=== PATIENT | male | born 1945 | race Hispanic/Latino ===

== ENCOUNTER 2023-07-02 18:04 | Observation (INO) | payer OTHER ==
[~2023-07-02] VITALS: Ht 160 cm; Wt 88.5 kg
[~2023-07-02 18:04] MED LIST: DILT240C96 PO; FINA5TAB41 PO; HYDR25TA PO; LOSA100T59 PO; METF-910 PO; TAMS0.4C32 PO; TYL2 PO
[2023-07-02] MEDS ORDERED: PEG 3350/NA SULF,BICARB,CL/KCL 4000 ML SOLN PO ONE (19:30)
[2023-07-02 20:21] LABS: BASOPHILS # (AUTO) 0.03 K/uL (0.00-0.20); BASOPHILS % (AUTO) 0.4 % (0.0-5.0); EOSINOPHILS # (AUTO) 0.08 K/uL (0.00-0.70); HEMATOCRIT 38.7 % (42-54); IMMATURE GRANULOCYTE ABSOLUTE 0.04 K/uL (0-1); LYMPHOCYTES # (AUTO) 1.2 K/uL (1.0-4.8); LYMPHOCYTES % (AUTO) 14.8 % (21.0-51.0); MEAN CORPUSCULAR HEMOGLOBIN 30.7 pg (27.0-33.0); MEAN CORPUSCULAR HGB CONC 33.9 g/dL (32.0-36.0); MEAN CORPUSCULAR VOLUME 90.6 fL (79-99); MONOCYTES # (AUTO) 0.7 K/uL (0.1-1.0); NEUTROPHILS # (AUTO) 5.9 K/uL (1.8-7.7); NEUTROPHILS % (AUTO) 74.3 % (40.0-77.0); PLATELET COUNT (AUTO) 96 K/uL (130-400); RED BLOOD CELL COUNT(AUTO) 4.27 MIL/uL (4.50-6.20); RED CELL DISTRIBUTION WIDTH 14.1 % (11.0-15.5)
[2023-07-02 20:27] LABS: CREATININE 1.4 mg/dL (0.5-1.5); POTASSIUM 3.9 mmol/L (3.5-5.1)
[2023-07-02 20:31] LABS: ALBUMIN 3.6 g/dL (3.5-5.0); BILIRUBIN,TOTAL 0.5 mg/dL (0.2-1.0); TOTAL PROTEIN, SERUM 7.2 g/dL (6.0-8.3)
[2023-07-02] MEDS ORDERED: IOHEXOL 350 MG/ML 100ML INFUS..BTL IV ONE (21:35)
[2023-07-02 21:42] LABS: ADD UA MICROSCOPIC NO; APPEARANCE,URINE CLEAR (CLEAR); BILIRUBIN,URINE NEGATIVE (NEGATIVE); COLOR,URINE COLORLESS (YELLOW); GLUCOSE, URINE (UA) NEGATIVE (NEGATIVE); KETONES,URINE NEGATIVE (NEGATIVE); LEUKOCYTE ESTERASE ,URINE NEGATIVE Leu/uL (NEGATIVE); NITRATE,URINE NEGATIVE (NEGATIVE); OCCULT BLOOD,URINE NEGATIVE (NEGATIVE); PROTEIN,URINE NEGATIVE (NEGATIVE); UROBILINOGEN,URINE 0.2 mg/dL (0.2-1.0)
[2023-07-02] MEDS ORDERED: 0.9%NACL 1000ML 1,000 ML IV ONE (22:30)
[2023-07-02] MEDS: 0.9%NACL 1000ML 1,000 ML IV ONE ×2 (22:48→22:49)
[2023-07-03] VITALS (8 sets, daily range): BP systolic 136–158; BP diastolic 71–95; PULSE 66–86; RESP 18–20; O2SAT 94–96
[2023-07-03] MEDS: 1/2 NS 1000ML 1,000 ML IV SCH ×2 (04:28→19:05)
[2023-07-03 06:26] LABS: BASOPHILS # (AUTO) 0.03 K/uL (0.00-0.20); BASOPHILS % (AUTO) 0.4 % (0.0-5.0); EOSINOPHILS % (AUTO) 1.3 % (0.0-8.0); HEMATOCRIT 36.3 % (42-54); IMMATURE GRANULOCYTE ABSOLUTE 0.04 K/uL (0-1); LYMPHOCYTES # (AUTO) 1.2 K/uL (1.0-4.8); LYMPHOCYTES % (AUTO) 15.2 % (21.0-51.0); MEAN CORPUSCULAR HEMOGLOBIN 30.6 pg (27.0-33.0); MEAN CORPUSCULAR HGB CONC 33.3 g/dL (32.0-36.0); MEAN CORPUSCULAR VOLUME 91.7 fL (79-99); MONOCYTES # (AUTO) 0.7 K/uL (0.1-1.0); MONOCYTES % (AUTO) 9.5 % (3.0-13.0); NEUTROPHILS # (AUTO) 5.6 K/uL (1.8-7.7); NEUTROPHILS % (AUTO) 73.1 % (40.0-77.0); PLATELET COUNT (AUTO) 223 K/uL (130-400); RED BLOOD CELL COUNT(AUTO) 3.96 MIL/uL (4.50-6.20); RED CELL DISTRIBUTION WIDTH 14.2 % (11.0-15.5); WHITE BLOOD COUNT (AUTO) 7.6 K/uL (4.8-10.8)
[2023-07-03 06:43] LABS: ALBUMIN 3.4 g/dL (3.5-5.0); BILIRUBIN,TOTAL 0.5 mg/dL (0.2-1.0); CREATININE 1.4 mg/dL (0.5-1.5); TOTAL PROTEIN, SERUM 6.6 g/dL (6.0-8.3)
[2023-07-03] MEDS ORDERED: AMLO-258 PO (06:54)
[2023-07-03] MEDS ORDERED: GABA300C PO (06:54)
[2023-07-03] MEDS ORDERED: ROSU5TAB12 PO (06:59)
[2023-07-03] MEDS ORDERED: SENN-304 PO (06:59)
[2023-07-03] MEDS: PANTOPRAZOLE 40 MG/VIAL IVP SCH ×2 (08:12→21:27)
[2023-07-03] MEDS ORDERED: DOCUSATE SODIUM PO PRN (18:30)
[2023-07-03] MEDS ORDERED: SENNOSIDES PO PRN (18:30)
[2023-07-03] MEDS: GABAPENTIN 300 MG CAPSULE PO SCH (21:27)
[2023-07-03] MEDS: TAMSULOSIN HCL 0.4 MG CAP.ER.24H PO SCH (21:28)
[2023-07-04] VITALS (17 sets, daily range): BP systolic 108–146; BP diastolic 54–86; PULSE 68–103; RESP 16–22; O2SAT 96–99
[2023-07-04 07:24] LABS: HEMATOCRIT 37.3 % (42-54)
[2023-07-04] MEDS: METFORMIN HCL 500 MG TAB.SR.24H PO SCH ×3 (08:00→16:24)
[2023-07-04] MEDS: GABAPENTIN 300 MG CAPSULE PO SCH ×3 (08:08→21:26)
[2023-07-04 08:26] LABS: INR 0.95 (0.85-1.15); PROTHROMBIN TIME 11.1 SEC (9.6-11.6)
[2023-07-04 08:28] LABS: PARTIAL THROMBOPLASTIN TIME 27.7 SEC (26.3-35.5)
[2023-07-04] MEDS ORDERED: NON-FORMULARY MEDICATION 1 EACH (Amlodipine Besylate 1 TAB) PO SCH (09:00)
[2023-07-04] MEDS ORDERED: DILTIAZEM HCL 240 MG PO SCH (09:00)
[2023-07-04] MEDS ORDERED: LIDOCAINE PF 100MG/5ML (2%) SYRINGE 5ML ONE (09:04)
[2023-07-04] MEDS ORDERED: PROPOFOL 10 MG/ML 20ML VIAL IV ONE (09:04)
[2023-07-04] MEDS: PANTOPRAZOLE 40 MG/VIAL IVP SCH ×2 (10:12→21:43)
[2023-07-04] MEDS: 1/2 NS 1000ML 1,000 ML IV SCH ×2 (10:12→19:54)
[2023-07-04] MEDS: LOSARTAN 100 MG TABLET PO SCH (10:14)
[2023-07-04] MEDS: AMLODIPINE 5 MG TAB PO SCH (10:14)
[2023-07-04] MEDS: DILTIAZEM 120MG SR CAP PO SCH (10:14)
[2023-07-04] MEDS: FINASTERIDE 5 MG TABLET PO SCH (10:14)
[2023-07-04] MEDS: HYDROCHLOROTHIAZIDE 25 MG TABLET PO SCH (10:14)
[2023-07-04] MEDS ORDERED: PEG 3350/NA SULF,BICARB,CL/KCL 4000 ML SOLN PO ONE (16:00)
[2023-07-04] MEDS: TAMSULOSIN HCL 0.4 MG CAP.ER.24H PO SCH (21:26)
[2023-07-05] VITALS (15 sets, daily range): BP systolic 97–127; BP diastolic 20–72; PULSE 64–75; RESP 12–20; O2SAT 96
[2023-07-05] MEDS ORDERED: LIDOCAINE PF 100MG/5ML (2%) SYRINGE 5ML ONE (06:40)
[2023-07-05] MEDS ORDERED: PROPOFOL 10 MG/ML 20ML VIAL IV ONE (06:40)
[2023-07-05] MEDS: PANTOPRAZOLE 40 MG/VIAL IVP SCH (09:18)
[2023-07-05] MEDS: GABAPENTIN 300 MG CAPSULE PO SCH (09:18)
[2023-07-05] MEDS: HYDROCHLOROTHIAZIDE 25 MG TABLET PO SCH (09:18)
[2023-07-05] MEDS: DILTIAZEM 120MG SR CAP PO SCH (09:19)
[2023-07-05] MEDS: FINASTERIDE 5 MG TABLET PO SCH (09:19)
[2023-07-05] MEDS: AMLODIPINE 5 MG TAB PO SCH (09:19)
[2023-07-05] MEDS: LOSARTAN 100 MG TABLET PO SCH (09:19)
[2023-07-05] MEDS: METFORMIN HCL 500 MG TAB.SR.24H PO SCH (09:19)
== END 2023-07-05 13:10 | disposition home or self-care (01) ==
LOC: EDH 18:04 → INTOOBSV 07-03 00:27 → EDHIP 07-03 00:27 → 4AH 07-03 03:48
PROVIDERS: ADMIT Internal Medicine; ATTEND Internal Medicine
DX: K57.30 Diverticulosis of large intestine without perforation or abscess without bleeding (principal); K92.1 Melena; K64.0 First degree hemorrhoids; K59.00 Constipation, unspecified; D50.9 Iron deficiency anemia, unspecified; N40.0 Benign prostatic hyperplasia without lower urinary tract symptoms; I10 Essential (primary) hypertension; E78.5 Hyperlipidemia, unspecified; E11.40 Type 2 diabetes mellitus with diabetic neuropathy, unspecified; Z85.038 Personal history of other malignant neoplasm of large intestine; Z88.0 Allergy status to penicillin; Z79.899 Other long term (current) drug therapy
CPT/HCPCS: 99284; 82150; 80053 ×2; 83690; 85025 ×2; 86850; 86900; 86901; 81003; 36415 ×3; 71045; 74177; 93005; 96374; 96376 ×3; 82270; 85610; 85730; 85014; 85018; 88305; 88312; 43239; 45378; J7030 ×3; Q9967; C9113 ×5; J2001 ×2; J2704 ×2; A4620 ×2; A4223 ×2; A7002 ×2; A4222 ×2; A4216 ×2; G0378 ×2; A4215; J3490